=== PATIENT | male | born 1980 | race Caucasian/White ===

== ENCOUNTER 2019-10-23 03:40 | Emergency (ER) | payer OTHER ==
[~2019-10-23] VITALS: Ht 188 cm; Wt 86.2 kg
[2019-10-23 03:43] VITALS: BP 137/90
--- NOTE | 2019-10-23 04:00 | NUR ---
Patient discharged to home in stable condition. Written and verbal after care instructions given. Patient verbalizes understanding of instruction. Pt ambulatory with a steady gait
== END 2019-10-23 04:00 | disposition home or self-care (01) ==
LOC: ER 03:42
DX: F10.129 Alcohol abuse with intoxication, unspecified (principal); R05 Cough

== ENCOUNTER 2019-10-23 08:29 | Emergency (ER) | payer OTHER ==
[~2019-10-23] VITALS: Ht 188 cm; Wt 87.1 kg
--- NOTE | 2019-10-23 08:33 | NUR ---
BIB [facility] FROM HOME,C/O SOB/BODY ACHES,LAST ALCOHOL DRINK 3 HRS AGO, D/C AT 0400 THIS AM,SEEN FOR ALCOHOL INTOXICATION,SPEAKING FULL SENTENCES, TO ER BED 12, HOOKED TO MONITOR, CHANGED TO HOSP GOW, PATIENT AOx3, AMBULATORY WITH STEADY GAIT, DR DODGE AT BEDSIDE
[2019-10-23] MEDS ORDERED: LORAZEPAM INJ 2 MG/ML VIAL ONE (08:59)
[2019-10-23] MEDS ORDERED: LORAZEPAM INJ 2 MG/ML VIAL IM ONE (09:00)
--- NOTE | 2019-10-23 09:21 | NUR ---
breakfast tray provided
--- NOTE | 2019-10-23 09:30 | NUR ---
Jose anderson in EDM - 10/23/19 at 0954 by USHA CHIQUITA ELKINS 878 FROM HOME,C/O SOB/BODY ACHES,LAST ALCOHOL DRINK 3 HRS AGO, D/C AT 0400 THIS AM,SEEN FOR ALCOHOL INTOXICATION,SPEAKING FULL SENTENCES, TO ER BED 12, HOOKED TO MONITOR, CHANGED TO DR DAR SAMUELS AT BEDSIDE
--- NOTE | 2019-10-23 09:52 | NUR ---
Patient discharged to home in stable condition. Written and verbal after care instructions given. Patient verbalizes understanding of instruction.
[2019-10-23 09:55] VITALS: BP 129/84
== END 2019-10-23 09:55 | disposition home or self-care (01) ==
LOC: ER 08:33
DX: F10.239 Alcohol dependence with withdrawal, unspecified (principal); F17.200 Nicotine dependence, unspecified, uncomplicated
CPT/HCPCS: 99284; 96372; J2060